=== PATIENT | male | born 1970 | race Caucasian/White ===

== ENCOUNTER 2017-10-22 12:52 | Emergency (ER) | payer MEDICAID ==
[~2017-10-22] VITALS: Ht 180.3 cm; Wt 99.8 kg
[2017-10-22 12:52] VITALS: BP_SYST 103
[2017-10-22 13:57] VITALS: BP_SYST 103
== END 2017-10-22 13:57 | disposition home or self-care (01) ==
LOC: SED 12:52
DX: T63.441A Toxic effect of venom of bees, accidental (unintentional), initial encounter (principal); Y92.89 Other specified places as the place of occurrence of the external cause; R03.0 Elevated blood-pressure reading, without diagnosis of hypertension
CPT/HCPCS: 99283